=== PATIENT | male | born 1955 | race Caucasian/White ===

== ENCOUNTER → 2017-05-19 | Outpatient (CLI) | payer BC ==
[~2017-05-19] MED LIST: ATOR-22 PO; AVD5 PO; FLM4 PO; OMEG10007 PO
== END | disposition home or self-care (01) ==
LOC: C.LAB1850 09:46
PROVIDERS: ATTEND Psychiatry & Neurology Neurology
DX: R51 Headache (principal)

== ENCOUNTER → 2017-05-26 | Outpatient (CLI) | payer BC ==
[~2017-05-26] MED LIST changes: +GADAVIST IV PRN
--- NOTE | 2017-05-26 11:35 | DIAGNOSTIC IMAGING REPORT ---
MRI OF THE BRAIN WITHOUT AND WITH IV CONTRAST CLINICAL HISTORY: R41.9 Cognitive [id number] COMPARISON STUDY: No previous studies for comparison. TECHNIQUE: Utilizing a 1.5 Edel magnet and dedicated coil, multiplanar, multiecho imaging of the brain was performed pre and postcontrast administration. IV administration of 9 mL of Gadavist contrast was uneventful. FINDINGS: Negative diffusion images. No acute ischemic insult. Moderate cerebral atrophy. Moderate chronic small vessel change. No significant postcontrast enhancement. Sella and parasellar regions are unremarkable. The internal artery canals are symmetric. IMPRESSION: 1. Moderate atrophy. 2. Mild chronic small vessel change. 3. Otherwise negative study Electronically signed by: Vel Mallory M.D. 05/26/2017 11:34 AM Dictated Date/Time: 05/26/2017 11:31 AM
== END | disposition home or self-care (01) ==
LOC: C.MRIBC 10:36
PROVIDERS: ATTEND Psychiatry & Neurology Neurology
DX: R42 Dizziness and giddiness (principal); R51 Headache; R41.9 Unspecified symptoms and signs involving cognitive functions and awareness